=== PATIENT | male | born 1990 | race African-American/Black ===

== ENCOUNTER 2017-03-20 06:14 | Emergency (ER) | payer OTHER ==
[~2017-03-20] VITALS: Ht 177.8 cm; Wt 95.5 kg
[~2017-03-20 06:14] MED LIST: BACI28.34 TOP; CLIN-73 PO; HYDR-3498 PO; HYDR-906 PO; IBUP-1542 PO; NAPR-260 PO
[2017-03-20 06:25] VITALS: Ht 177.8 cm; Wt 95.5 kg
[2017-03-20] MEDS ORDERED: IBUPROFEN 600 MG TAB PO ONE (07:00)
--- NOTE | 2017-03-20 08:09 | RADRPT ---
PROCEDURE: XR Foot. CLINICAL INDICATION: Injury, pain TECHNIQUE: Three views of the right foot are available for review. COMPARISON: None available FINDINGS: The osseous structures, articular spaces, and surrounding soft tissues are intact. No acute fractur e or dislocation is seen. No radiopaque foreign body is identified. Bony mineralization is normal. IMPRESSION: 1. Unremarkable right foot x-ray series. RPTAT: [facility] .Julio C Turner MD, MD Date Time Electronically viewed and signed by .Julio C Turner MD, MD on 03/20/2017 08:09 .R/
--- NOTE | 2017-03-20 08:10 | RADRPT ---
PROCEDURE: XR Ankle. CLINICAL INDICATION: Injury, pain TECHNIQUE: Three views of the right ankle are available for review. COMPARISON: None available FINDINGS: The osseous structures, articular spaces, and surrounding soft tissues of the right ankle are intact . No acute fracture or dislocation is seen. No radiopaque foreign body is identified. IMPRESSION: 1. Unremarkable right ankle x-ray series. RPTAT: UU .Julio C Turner MD, MD Date Time Electronically viewed and signed by .Julio C Turner MD, on 03/20/2017 08:09 .R/
[2017-03-20] MEDS ORDERED: HYDROCODONE/APAP (5/325) TAB PO ONE (08:30)
[2017-03-20] MEDS ORDERED: HYDR-906 PO (08:55)
[2017-03-20] MEDS ORDERED: NAPR-688 PO (08:55)
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
== END 2017-03-20 09:50 | disposition home or self-care (01) ==
LOC: FTE 06:14
DX: S90.31XA Contusion of right foot, initial encounter (principal); I10 Essential (primary) hypertension; W22.8XXA Striking against or struck by other objects, initial encounter; Y92.9 Unspecified place or not applicable
CPT/HCPCS: 73630